=== PATIENT | female | born 1965 | race Caucasian/White ===

== ENCOUNTER 2024-04-13 09:42 | Outpatient (REF) | payer OTHER, SELFPAY ==
--- NOTE | ~2024-04-13 | XR_ITS ---
EXAMINATION: XR KNEE, RIGHT CLINICAL INFORMATION: Unilateral primary osteoarthritis right knee COMPARISON: None available. TECHNIQUE: Three views of the right knee. FINDINGS: Trace joint effusion. Moderate narrowing of the medial compartment with minimal medial marginal osteophytes. XR/XR knee RT 3V IMPRESSION: Moderate degenerative changes medial compartment. Electronically signed by: Tari Vázquez MD 05/10/2024 09:49 AM EDT
== END 2024-04-13 09:43 | disposition home or self-care (01) ==
LOC: HO.XRAY 09:42
PROVIDERS: PCP Internal Medicine; Visit Provider Physician Assistant
DX: M17.11 Unilateral primary osteoarthritis, right knee (principal)
CPT/HCPCS: 73562

== ENCOUNTER 2024-04-13 10:16 | Outpatient (AMB) | payer OTHER, SELFPAY ==
--- NOTE | 2024-04-13 10:18 | MHC.OFFVIS ---
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 Patient reports last May she felt a pop sensation in her knee when she was walking, she did not fall. She was seen at an urgent care and was referred to [facility] who ordered an MRI and PT. She did not continue her care at [facility] as she felt the surgeon was not listening to her. She than followed up with another surgeon in [place] however due to her insurance she was not able to continue her care. She was told having a torn meniscus. Her pain presented at the medial aspect and has recently migrated to the lateral aspect of her knee. She will have shooting pain with certain leg positions and has the most discomfort at night. She has tried and failed PT. Finds some relief with KT tape. 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 She reports she felt a ?pop? sensation in her knee when she was walking in May however she did not fall. She was seen at urgent care where she was referred to [facility] who ordered an MRI and physical therapy which did not provide her any relief. She did not continue her care at [facility] as she felt the surgeon was not listening to her. She then followed up with another surgeon in [place] however she was unable to continue due to insurance issues. She states she has pain at the medial aspect that has recently migrated to the lateral aspect of her knee. She also experiences a shooting pain with certain leg positions and her pain is aggravated at night. She finds mild relief with KT tape. [facility] Surgical History (Updated 04/13/24 @ 10:25 by MIS Tamez) History of oral surgery Hx of hysterectomy Social History (Updated 04/13/24 @ 10:25 by MIS Tamez) Patient Tobacco Use Status: Never used Tobacco Current occupational status: employed Current occupation: educator Review of Systems Const All systems reviewed & are unremarkable except as noted in HPI and below Physical Exam Vital Signs: BMI result Body Mass Index 32.3 Const General: cooperative, healthy appearing, comfortable, no acute distress, well developed and alert Orientation/consciousness: patient oriented x3 HEENT Head: Yes normal to inspection, Yes normocephalic and Yes atraumatic Eyes General: appearance normal, both eyes and all related structures Resp Effort & Inspection: normal respiratory effort and able to speak in complete sentences Cardio Rate: regular rate Peripheral pulses: Peripheral pulses 2+ throughout GI Palpation (GI): Soft to palpation Skin Lesions: no lesions Rashes: no rashes Neuro General: patient oriented x3 Extrem Other: Right knee: Skin intact, no erythema or joint effusion. Tenderness along the medial joint line. Full ROM with crepitus. Positive Steffanie?s. No ligamentous laxity. NVI. ?? Results Reviewed Results Reviewed: Assessment & Plan Assessment & Plan (1) Tear of meniscus of right knee as current injury: Code(s): S83.A - Unspecified tear of unspecified meniscus, current injury, right knee, initial encounter Category: Medical (2) Osteoarthritis of right knee: Code(s): M17.11 - Unilateral primary osteoarthritis, right knee Category: Medical Plan We discussed options today and also findings on MRI reports from [facility]?s which show her meniscus is symptomatic and limiting her daily activities. I discussed the extent of her arthritis and how this can affect her knee as well. I explained surgical intervention for meniscus repair with conservative treatment with the arthritis. Given her significantly limited lifestyle I would like her to meet with Dr. Ahumada to discuss this further and discuss other options in detail and whether surgery actually is an option. She was also given a knee brace to help with stability. She will meet with Dr. Ahumada as discussed. Orders: Orders XR knee RT 3V Today M17.11 - Unilateral primary osteoarthritis, right knee Patient Instructions: Scribed for Usman Caceres PA-C, by Duane Reich medical physics teacher, on 04/13/2024 at 10:15 AM EST.? I, Usman Caceres PA-C, have personally reviewed and agree with the information entered by the scribe. Coding Level of Care Code New Pt Level 3 (19184) Diagnoses Tear of meniscus of right knee as current injury S83.206A Osteoarthritis of right knee M17.11
[2024-04-13 10:25] VITALS: BMI 32.3
== END 2024-04-13 11:32 | disposition home or self-care (01) ==
PROVIDERS: PCP Internal Medicine; Visit Provider Physician Assistant
DX: S83.206A Unspecified tear of unspecified meniscus, current injury, right knee, initial encounter (principal); M17.11 Unilateral primary osteoarthritis, right knee
CPT/HCPCS: 99203

== ENCOUNTER 2024-05-16 14:53 | Outpatient (AMB) | payer OTHER, SELFPAY ==
--- NOTE | 2024-05-16 14:58 | A.OFFVIS_ITS ---
Intake Visit Reasons: OV - right knee meniscus tear Intake Note: Mina is a 58 year old male who presents today for a follow up visit of his right knee meniscus tear.She states that she experiences pain and discomfort if she doesn't wear her knee brace. Patient states she has been taking Advil, icing and or elevating her knee to bring relief. Allergies No Known Allergies Allergy (Verified 05/16/24 15:04) HPI HPI OV - right knee meniscus tear: Details: Mina is a 58 year old male who presents today for a follow up visit of his right knee meniscus tear.She states that she experiences pain and discomfort if she doesn't wear her knee brace. Patient states she has been taking Advil, icing and or elevating her knee to bring relief. She describes injuring her knee last fall. She states she heard a pop and has been unable to resume her daily physical activities. She saw a few other providers. The firs one at [facility] was not helpful according to her and the second one in [place] ordered an MRI and suggested surgery but her insurance did not allow her to pursue this and so she presents here for a third opinion. She describes previously being able to walk several miles a day at pace but now unable to walk for more than several minutes. She works as a teacher. She describes sharp mediual sided pain occasionally as well as aching and throbbing after activity. She has a h/o cervical CA and had a hysterectomy which explains her delay in treatment. [facility] Surgical History (Updated 04/13/24 @ 10:25 by MIS Tamez) History of oral surgery Hx of hysterectomy Social History (Updated 04/13/24 @ 10:25 by MIS Tamez) Patient Tobacco Use Status: Never used Tobacco Current occupational status: employed Current occupation: educator Physical Exam Extrem Other: Full ROM right knee with fullness and discomfort on deep flexion with discomfort with Steinmen's testing. No effusion. Mild medial joint line ttp. Results Reviewed Results Reviewed: I personally reviewed relevant radiographs. Varus alignement with decreased medial joint space and mild arthritic changes medially and moderate PF changes. I personally reviewed the MR images. There is a posterior medial root avulsion and mild medial compartment changes. Assessment & Plan Assessment & Plan (1) Tear of meniscus of right knee as current injury: Code(s): S83.206A - Unspecified tear of unspecified meniscus, current injury, right knee, initial encounter Category: Medical Plan: This is a 58 yo F with posterior medial root avulsion. She has mild OA and is very active. I had a long discussion with her regarding treatment options. She has failed PT and tried injections. I recommend right knee with possible meniscus repair. I explained the possibility that the tear is not repairable and may require partial meniscectomy. I also described that severe arthrosis may complicate outcomes and decrease recovery time. She will think about our discussion and let me know. She is most worried, it appears, by the time off of work required. Coding Level of Care Code Est Pt Level 4 (44462) Diagnoses Tear of meniscus of right knee as current injury S83.206A
== END 2024-05-16 15:30 | disposition home or self-care (01) ==
PROVIDERS: PCP Internal Medicine; Visit Provider Orthopaedic Surgery
DX: S83.206A Unspecified tear of unspecified meniscus, current injury, right knee, initial encounter (principal)
CPT/HCPCS: 99214

== ENCOUNTER → 2024-05-16 14:53 | Outpatient (BNVA) | payer OTHER, SELFPAY | PROVIDERS: PCP Internal Medicine; Visit Provider Orthopaedic Surgery ==

== ENCOUNTER 2024-11-28 13:33 | Outpatient (AMB) | payer OTHER, SELFPAY ==
--- NOTE | 2024-11-28 13:35 | A.OFFVIS_ITS ---
Intake Visit Reasons: OV-RT knee meniscus tear Intake Note: Mina is a 58 year old female who presents today for a follow up visit of her right knee meniscus tear. Patient has tried and failed physical therapy and injections. We previously discussed and recommended a right knee with possible meniscus repair & the possibility that the tear is not repairable and may require partial meniscectomy. At that time the patient was not ready to move forward with surgery. She is accompanied by her Judy. She complains of pain on the outer aspect of the right knee. Core Winding Operator Required: No Allergies No Known Allergies Allergy (Verified 11/28/24 13:39) Medication List - Last Reconciled 11/28/24 by Ira Mclean, RN amlodipine 5 mg PO BEDTIME ascorbic acid (vitamin C) 1 g PO DAILY citalopram 10 mg PO BEDTIME famotidine 20 mg PO DAILY glucosamine sulfate 1,500 mg PO DAILY magnesium citrate,mag oxide mg PO meloxicam 15 mg PO DAILY PRN metformin ER 500 mg PO DAILY multivitamin (Multiple Vitamins tablet) 1 tab PO DAILY HPI HPI OV-RT knee meniscus tear: Details: Mina is a 59-year-old woman with ongoing right knee pain. I had seen her 6 months ago and we had talked about surgery for a root tear. At the time however she was not ready were prepared to undergo surgery. She has been continuing to be active but also has ongoing right knee pain that prevents her from exercising or ambulating like she would like to and like she was able to before her injury. [facility] Surgical History (Updated 04/13/24 @ 10:25 by MIS Tamez) History of oral surgery Hx of hysterectomy Social History (Updated 04/13/24 @ 10:25 by MIS Tamez) Patient Tobacco Use Status: Never used Tobacco Current occupational status: employed Current occupation: educator Physical Exam Extrem Other: Full range of motion with no effusion. There is tenderness to palpation medial joint line with a positive medial Steffanie's. Results Reviewed Results Reviewed: I personally reviewed the MR images. MRI shows a medial meniscus posterior root avulsion with myxoid degeneration of the posterior horn of the medial meniscus. Assessment & Plan Assessment & Plan (1) Tear of meniscus of right knee as current injury: Code(s): S83.206A - Unspecified tear of unspecified meniscus, current injury, right knee, initial encounter Category: Medical Plan: This is a 51-year-old woman with mild osteoarthritis of the right knee and a posterior root meniscus tear with degenerative tearing adjacent. She has been v ruslan active in trying to get better but continues to have pain. I recommend a right knee arthroscopy. I reviewed with her the possibilities of repair versus medial meniscectomy. Meniscectomy is more likely than repair given her age and arthritis in the duration of time since her injury. I discussed the risks of incomplete symptom resolution, infection, pain as well as need for additional surgery. She expressed understanding and we will proceed forward accordingly. Coding Level of Care Code Est Pt Level 4 (39677) Diagnoses Tear of meniscus of right knee as current injury S83.206A
== END 2024-11-28 14:13 | disposition home or self-care (01) ==
LOC: HO.HOS 13:34
PROVIDERS: PCP Internal Medicine; Visit Provider Orthopaedic Surgery
DX: S83.206A Unspecified tear of unspecified meniscus, current injury, right knee, initial encounter (principal)
CPT/HCPCS: 99214

== ENCOUNTER → 2024-11-28 13:33 | Outpatient (BNVA) | payer OTHER, SELFPAY | PROVIDERS: PCP Internal Medicine; Visit Provider Orthopaedic Surgery ==

== ENCOUNTER 2024-12-29 11:04 | Outpatient (AMB) | payer OTHER, SELFPAY ==
--- NOTE | 2024-12-29 11:19 | MHC.OFFVIS ---
Vital Signs 12/29/24 11:21 Height 5 ft 6 in Weight 210 lb BMI 33.9 Intake Visit Reasons: Pre-Rt Knee 01/04/25 NE Intake Note: Mina is a 59 year old female who presents today for a preoperative RT knee , DOS 01/04/25 NE. Pain management agreement reviewed and signed. Allergies No Known Allergies Allergy (Verified 11/28/24 13:39) HPI HPI Pre-Rt Knee 01/04/25 NE: Details: Ms. Alexandre is a 59-year-old female who presents to the office today accompanied by her for her preoperative history and physical exam pending right knee arthroscopy for partial medial meniscectomy versus repair. Tentative surgical date is 01/04/[address] Ahumada. Patient has past medical history significant for diabetes on metformin. [facility] Surgical History (Updated 04/13/24 @ 10:25 by Nicki Simon Brayden) History of oral surgery Hx of hysterectomy Social History Patient Tobacco Use Status: Never used Tobacco Current occupational status: employed Current occupation: educator Review of Systems Const All systems reviewed & are unremarkable except as noted in HPI and below Physical Exam Vital Signs: BMI result Body Mass Index 33.9 Extrem Other: Full range of motion with no effusion. There is tenderness to palpation medial joint line with a positive medial Steffanie's. Assessment & Plan Assessment & Plan (1) Tear of meniscus of right knee as current injury: Code(s): S83.206A - Unspecified tear of unspecified meniscus, current injury, right knee, initial encounter Category: Medical (2) Osteoarthritis of right knee: Code(s): M17.11 - Unilateral primary osteoarthritis, right knee Category: Medical Plan Ms. Alexandre is a 59-year-old female who presents to the office today accompanied by her for her preoperative history and physical exam pending right knee arthroscopy for medial meniscectomy versus repair. Tentative surgical date is 01/04/[address] Ahumada. Patient has past medical history significant for diabetes on metformin. I discussed in detail the procedure and what to expect pre and post operatively. We discussed the risks, benefits and alternatives to the surgery as well as the rehabilitation course. The risks; which include, but are not limited to infection, bleeding, nerve injury, ongoing pain, swelling, and stiffness, perioperative risk of injury to bones and soft tissues, and blood clots. Patient was fit for an ACL brace off the shelf in the office today. This will be brought on the day of surgery if meniscal repair is performed. I?ve answered all questions and with their understanding they have consented to move forward with right knee arthroscopy for partial medial meniscectomy versus repair with Dr. Ahumada. Coding Level of Care Code Global (52355) Diagnoses Tear of meniscus of right knee as current injury S83.206A Osteoarthritis of right knee M17.11
[2024-12-29 11:21] VITALS: BMI 33.9
== END 2024-12-29 11:51 | disposition home or self-care (01) ==
LOC: HO.HOS 11:05
PROVIDERS: PCP Internal Medicine; Visit Provider Physician Assistant
DX: S83.206A Unspecified tear of unspecified meniscus, current injury, right knee, initial encounter (principal); M17.11 Unilateral primary osteoarthritis, right knee
CPT/HCPCS: 99024

== ENCOUNTER 2025-01-03 05:54 | Day surgery (SDC) | payer OTHER, SELFPAY ==
--- OUTSIDE RECORDS SUMMARY | 2025-01-02 09:28 | XMS_ITS | Continuity of Care Document ---
Author Organization [facility] Address [address] [place] [address] Phone Care Team Providers Care Aerosol Supervisor Name Role Phone Ian GRAYSON, Marquise Unavailable Unavailable Advance Directives Directive Yes / No Effective Date File Name No Information Encounters Encounter Description Practice Location Reason(s) For Visit Diagnoses Date Provider Providers Copied on Encounter [facility], [address], [place], [id number], [place] tel:[phone] [address] [facility] No Information 4 Ian Cam[place]. [address], [place], [address], [place]. tel:[phone] Family History Family Member Type Diagnosis Age At Onset No Information Payers Payer name Insurance type Covered democrat ID Authoriza tion(s) No Information Social History Type Description Quantity Date Captured Comments Sex Female Smoking Status No Information Chief Complaint And Reason For Visit No Information Reason For Referral Reason For Referral No Information History Of Present Illness Encounter Date Complaint History Of Prese nt Illness No Information Functional Status Date Functional Assessmen t No Information Instructions Date Instruction Additional Infor mation No Information Assessments Type Assessment Date No Information Patient Care Teams Name Effective Dates (start - stop) Status Members No Information
--- NOTE | 2025-01-02 12:35 | HO.ANESPROP2 ---
HPI - Anesthesia Eval Consult details Narrative: 59yo F for Right Knee Arthroscopy PMFSH Active Problems Active Problems: All Active Problems Osteoarthritis of right knee (Acute) Tear of meniscus of right knee as current injury (Acute) Past Medical History Medical History (Updated 01/02/25 @ 12:34 by Mari Waite NP) Diabetes HTN (hypertension) Surgical History Surgical History (Updated 04/13/24 @ 10:25 by MIS Tamez) History of oral surgery Hx of hysterectomy Social History Social History Patient Tobacco Use Status: Never used Tobacco Current occupational status: employed Current occupation: educator Meds Allergies Allergy/AdvReac Type Severity Reaction Status Date / Time No Known Allergies Allergy Verified 11/28/24 13:39 Home Medications ?Medication ?Instructions ?Recorded ?Confirmed ?Last Taken ?Type amlodipine 5 mg tablet 5 mg PO BEDTIME 04/13/24 11/28/24 Unknown History ascorbic acid (vitamin C) 1,000 mg 1 g PO DAILY 04/13/24 11/28/24 Unknown History capsule citalopram 10 mg tablet 10 mg PO BEDTIME 04/13/24 11/28/24 Unknown History famotidine 20 mg tablet 20 mg PO DAILY 04/13/24 11/28/24 Unknown History glucosamine sulfate 1,000 mg 1,500 mg PO DAILY 04/13/24 11/28/24 Unknown History capsule magnesium citrate,mag oxide 250 mg mg PO 04/13/24 11/28/24 Unknown History capsule meloxicam 15 mg tablet 15 mg PO DAILY PRN 04/13/24 11/28/24 Unknown History metformin 500 mg tablet,extended 500 mg PO DAILY 04/13/24 11/28/24 Unknown History release 24 hr multivitamin (Multiple Vitamins 1 tab PO DAILY 04/13/24 11/28/24 Unknown History tablet) Assessment and Plan Assessment Anesthesia Assessment: Chart Reviewed
[2025-01-03] VITALS (8 sets, daily range): BP systolic 116–146; BP diastolic 60–81; PULSE 57–79; RESP 14–18; TEMP 36.2–36.5; O2SAT 93–96; BMI 34.2
[2025-01-03] MEDS: Lactated Ringers 1,000 ML 100 ML IVCONT (06:48)
[2025-01-03 06:58] LABS: Glucose, Whole Blood 260 mg/dL (60-115)
--- NOTE | 2025-01-03 07:27 | MHC.SHP ---
Pre-Procedural Eval Section A - 24 Hr Update-Section A only Date of Service: 01/03/25 The patient is an INPATIENT: No Changes since office visit: No Cold of Flu in the past 2 weeks, No New Medical Problems, No Changes in Medication and No Patient answered all questions The patient has been examined within 24 hours of the surgical procedure. The History & Physical has been completed within 30 days and I have reviewed it.: Yes Section B - Complete if H&P > 30 days Chief Complaint: Unspecified tear of unspecified meniscus, current Allergies: Allergies Allergy/AdvReac Type Severity Reaction Status Date / Time No Known Allergies Allergy Verified 01/03/25 06:17 Plan I have reviewed the history and physical and performed a pertinent physical examination on my patient. No changes have occurred unless specified. Time Spent With Patient Time: Total time managing care of this patient today ____ minutes.
[2025-01-03] MEDS: Insulin Lispro 100 UNIT/ML 3 ML VIAL SUBCUT (07:31)
[2025-01-03] MEDS: ceFAZolin Sodium/Dextrose,Iso 2 GM/50 ML PIGGYBACK IV (07:35)
--- NOTE | 2025-01-03 08:31 | PM.OP ---
Brief Operative Note Date of Service: 01/03/25 Pre-op diagnosis: right medial meniscus tear Post-op diagnosis: other (1) right knee OA) Procedure: Partial medial meniscectomy and chondroplasty Implants: none Surgeon: Kirit Ahumada MD Anesthesia: GETA Was an Tv Production Assistant used for this Procedure?: No Estimated blood loss (mL): 5 Tourniquet time (min): 24 IV fluids (mL): 500 Pathology: none sent Condition: stable Disposition: PACU
--- NOTE | 2025-01-03 11:17 | P.OP_ITS ---
Operative Note Operative Note Date of Service: 01/03/25 Narrative: Date of Service: 01/03/25 Pre-op diagnosis: right medial meniscus tear Post-op diagnosis: other (1) right knee OA) Procedure: Partial medial meniscectomy and chondroplasty Implants: none Surgeon: Kirit Ahumada MD Anesthesia: GETA Was an History Department Chair used for this Procedure?: No Estimated blood loss (mL): 5 Tourniquet time (min): 24 IV fluids (mL): 500 Pathology: none sent Condition: stable Disposition: PACU Procedure in detail: Patient was brought to the operating room placed supine on the arthroscopic table and prepped and draped in standard sterile fashion. A time-out was called to identify proper site proper procedure proper surgeon and IV antibiotics per weight were administered. I began by exsanguinating the limb and insufflating tourniquet to 300 mm Hg. Then made a standard anterolateral stab incision. The knee was insufflated with water and 30 degree arthroscope was placed. There was grade 1 fibrillations of the patella and the suprapatellar pouch and the gutters were clean. There was G2/3 changes of the central trochlea which extended medially to included the weight bearing portion 0f the MFC I descended into the medial compartment where I made my medial portal under direct visualization. There was degenerative tear of the posterior horn of the medial meniscus. The root was intact and there was grade 1 changes in the tibial plateau but minimal. I used a combination of biter shaver and cautery to remove unstable portions of the meniscus. Apporximately 20% meniscal volume was removed. I then performed a chondroplasty of the MFC and trochlea. Once I was satisfied with this the ACL was examined and found to be intact and the lateral compartment was examined with G1 changes of the tibia and nl femoral cartilage. The meniscus was normal. I then removed all instrumentation and closed the portals with skin glue. 25 mL of 2% Marcaine with epinephrine was injected into the joint and the surrounding soft tissues. Patient was then placed in sterile dressing extubated brought recovery room stable condition. There were no known complications.
--- NOTE | 2025-01-03 11:23 | HO.POSTANES ---
Post Anesthesia Evaluation Post Anesthesia Evaluation Date of Service: 01/03/25 Vital Signs: Vital Signs Temp Pulse Resp BP Pulse Ox O2 Del Method 01/03/25 09:35 97.4 F 64 18 123/72 96 Room Air 01/03/25 09:20 57 14 119/66 94 Room Air 01/03/25 09:05 61 14 141/81 H 94 Room Air 01/03/25 08:50 64 14 134/70 94 Room Air 01/03/25 08:45 65 14 116/66 93 Room Air 01/03/25 08:40 74 14 146/71 H 93 Room Air 01/03/25 08:36 97.1 F 79 14 131/60 93 Room Air 01/03/25 06:35 97.7 F 70 16 124/78 95 Room Air Anesthesia: General LMA Mental Status: Awake Pain Control: Satisfactory Nausea/Vomiting: None Hydration: Adequate Anesthesia-Related Issues: No Anes. Related Issues
== END 2025-01-03 10:34 | disposition home or self-care (01) ==
PROVIDERS: PCP Physician Assistant Medical; Visit Provider Orthopaedic Surgery
PROC: (CPT 29870; principal; 2025-01-03 07:30)
DX: M23.221 Derangement of posterior horn of medial meniscus due to old tear or injury, right knee (principal); M25.561 Pain in right knee; M17.11 Unilateral primary osteoarthritis, right knee; I10 Essential (primary) hypertension; E11.9 Type 2 diabetes mellitus without complications; Z79.84 Long term (current) use of oral hypoglycemic drugs; Z79.899 Other long term (current) drug therapy; Z98.890 Other specified postprocedural states
CPT/HCPCS: 29881; 82947; J0131; J0171; J0690; J2003; J2250; J2405; J2704; J2795; J3010

== ENCOUNTER → 2025-01-03 05:54 | Outpatient (BNV) | payer OTHER, SELFPAY | PROVIDERS: PCP Physician Assistant Medical; Visit Provider Orthopaedic Surgery | DX: S83.241A Other tear of medial meniscus, current injury, right knee, initial encounter (principal) | CPT/HCPCS: 29881 ==

== ENCOUNTER 2025-01-13 11:29 | Outpatient (AMB) | payer OTHER, SELFPAY ==
--- NOTE | 2025-01-13 11:36 | MHC.OFFVIS ---
Intake Visit Reasons: PO-Rt Knee 01/03/25 NE Intake Note: Mina is a 59 year old male who presents today for a post operative RT Knee on 01/03/[address] Ahumada. Patient reports she is doing well. States she had slight increase of pain thursday and is better now. She has bruising behind her knee and has not tried to walk up more than a few steps going up stairs due to being scare her knee will hurt. Allergies No Known Allergies Allergy (Verified 01/13/25 11:41) Medication List - Last Reconciled 01/13/25 by Usman Caceres PA-C amlodipine 5 mg PO BEDTIME ascorbic acid (vitamin C) 1 g PO DAILY [calcium 600 mg PO DAILY] citalopram 10 mg PO BEDTIME glucosamine sulfate 1,500 mg PO DAILY hydrocodone-acetaminophen 5-325 mg 1 tab PO Q8H PRN 7 days metformin ER 500 mg PO DAILY multivitamin (Multiple Vitamins tablet) 1 tab PO DAILY omeprazole 20 mg PO DAILY [Vitamin D3 1,000 multiple units PO DAILY] HPI HPI PO-Rt Knee 01/03/25 NE: Details: 59-year-old female returns to the office today status post right knee arthroscopy with Dr. Ahumada on 01/03/2025. She states she is doing well her pain is more manageable and her swelling has improved since the past few days. She has been back to work without any concerns today. [facility] Medical History (Updated 01/02/25 @ 12:34 by Mari Waite NP) Diabetes HTN (hypertension) Surgical History History of oral surgery Hx of hysterectomy Social History Patient Tobacco Use Status: Never used Tobacco Current occupational status: employed Current occupation: educator Review of Systems Const All systems reviewed & are unremarkable except as noted in HPI and below Physical Exam Const General: cooperative and no acute distress Orientation/consciousness: patient oriented x3 Resp Effort & Inspection: normal respiratory effort and able to speak in complete sentences Cardio Peripheral pulses: Peripheral pulses 2+ throughout Neuro General: patient oriented x3 Extrem Other: Right knee incision clean dry and intact. No erythema or joint effusion. Range of motion 0-95 degrees. Calf is supple and nontender neurovascularly intact. Results Reviewed Results Reviewed: Brief Operative Note Date of Service: 01/03/25 Pre-op diagnosis: right medial meniscus tear Post-op diagnosis: other (1) right knee OA) Procedure: Partial medial meniscectomy and chondroplasty Implants: none Surgeon: Kirit Ahumada MD Assessment & Plan Assessment & Plan (1) Tear of meniscus of right knee as current injury: Code(s): S83.206A - Unspecified tear of unspecified meniscus, current injury, right knee, initial encounter Category: Medical (2) Osteoarthritis of right knee: Code(s): M17.11 - Unilateral primary osteoarthritis, right knee Category: Medical Plan Sutures removed today Steri-Strips applied. She can increase activities as tolerated. She will begin a course of physical therapy for range of motion quad strength and gait training. I stressed the importance of avoiding high impact activities deep bending kneeling squatting or twisting mechanisms for the next 4-6 weeks. She was given a work note today that she was present for her visit and she can return on Thursday no restrictions. She will follow up in our office if there are any questions or concerns otherwise follow up as needed. Orders: Orders PT Evaluation and Treatment Today M17.11 - Unilateral primary osteoarthritis, right knee, S83.206A - Unspecified tear of unspecified meniscus, current injury, right knee, initial encounter Coding Level of Care Code Global (49740) Diagnoses Tear of meniscus of right knee as current injury S83.206A Osteoarthritis of right knee M17.11
--- OUTSIDE RECORDS SUMMARY | 2025-01-13 11:46 | XMS_ITS | Continuity of Care Document ---
Author Organization [facility] Address [address] [place] [address] Phone Care Team Providers Care Hearing Impaired Teacher Name Role Phone Ian GRAYSON, Marquise Unavailable Unavailable Advance Directives Directive Yes / No Effective Date File Name No Information Encounters Encounter Description Practice Location Reason(s) For Visit Diagnoses Date Provider Providers Copied on Encounter [facility], [address], [place], [id number], [place] tel:[phone] [facility] No Information 4 Ian Camarillo. [address], [place], [address], [place]. tel:[phone] Family History Family Member Type Diagnosis Age [...]
== END 2025-01-13 11:58 | disposition home or self-care (01) ==
LOC: HO.HOS 11:30
PROVIDERS: PCP Internal Medicine; Visit Provider Physician Assistant
DX: S83.206A Unspecified tear of unspecified meniscus, current injury, right knee, initial encounter (principal); M17.11 Unilateral primary osteoarthritis, right knee
CPT/HCPCS: 99024

== ENCOUNTER 2025-04-12 10:00 | Outpatient (RCR) | payer OTHER, SELFPAY | END 2025-05-09 09:30 | disposition home or self-care (01) | LOC: HO.PT 10:00 | PROVIDERS: PCP Internal Medicine; Visit Provider Physician Assistant | DX: M17.11 Unilateral primary osteoarthritis, right knee (principal); S83.206D Unspecified tear of unspecified meniscus, current injury, right knee, subsequent encounter | CPT/HCPCS: 97110; 97116; 97140; 97161; 97530 ==